=== PATIENT | female | born 1940 | race Caucasian/White ===

== ENCOUNTER 2021-02-26 06:31 | Observation (INO) | payer OTHER ==
[~2021-02-26] VITALS: Ht 154.9 cm; Wt 95.6 kg
[~2021-02-26 06:31] MED LIST: AMARYL2 M1 PO; ASA81BEC PO; BRILINTA90 MG PO; COUMADIN 4 MG TA4 M1 PO; DILTIAZEM HCL30 MG PO; ELIQUIS5 MG PO; FLECAINIDE ACET50 M2 PO; FUROSEMIDE 40 M40 M1 PO; FUROSEMIDE 40 M40 MG PO; HYDROCODON-ACE1 EAC7 PO; HYZAAR 50-12.51 EACH PO; JANTOVEN5 MG PO; KLOR-CON M2020 MEQ PO; LANOXIN125 MCG PO; LANTUS100 UNIT/M SUBQ; LEVEMIR100 UNIT/1 SUBQ; LIPITOR40 MG PO; LOSARTAN-HCTZ1 EAC3 PO; METOPROLOL TART25 MG PO; NOVOLIN N100 UNIT/3 SUBQ; NOVOLIN R100 UNIT/1 SUBQ; OMEPRAZOLE 20 M20 M1 PO; PACERONE 200 M200 M1 PO; PLAVIX 75 MG TA75 MG PO; PRAVACHOL20 MG PO; SOTALOL160 MG PO; SOTALOL80 MG PO; TEMAZEPAM30 MG PO; TYLOPHEN500 MG PO; XARELTO10 MG PO
[2021-02-26 07:36] VITALS: BP 126/74
[2021-02-26 08:00] LABS: ABSOLUTE NEUTROPHILS 3.2 thou/uL (1.4-8.2); BASOPHILS 1.4 % (0.0-2.0); EOSINOPHILS 2.5 % (0.0-3.0); HEMOGLOBIN 12.5 gm/dL (12.0-15.0); LYMPHOCYTES 26.7 % (24.0-44.0); MCH 28.6 pg (26.0-34.0); MCHC 32.1 g/dL (28.0-37.0); MCV 89.1 fL (80.0-100.0); PLATELET COUNT 302 thou/uL (150-400); POLYS 58.4 % (36.0-66.0); RBC 4.38 mil/uL (4.20-5.00); RDW 16.2 % (10.5-14.5); WBC 5.4 thou/uL (4.0-11.0)
[2021-02-26 08:10] LABS: CALCIUM 9.3 mg/dL (8.5-10.1); CREATININE 1.5 mg/dL (0.6-1.0); POTASSIUM 3.5 mmol/L (3.5-5.1)
[2021-02-26 08:12] LABS: APTT 28.6 Seconds (24.5-32.8); INR 1.1; PROTIME 11.9 Seconds (10.5-12.1)
[2021-02-26 08:16] LABS: ALBUMIN 3.4 g/dL (3.4-5.0); TOTAL BILIRUBIN 0.5 mg/dL (0.2-1.0)
--- NOTE | 2021-02-26 11:07 | TEE ---
[facility] [place] [address] TRANSESOPHAGEAL ECHOCARDIOGRAM Name: SAMMY LONGO Room #: REG KADEN Preciado#: [id number] Admission: 02/26/21 Attend Phys: Javi Hinojosa MD Discharge: Date of : 42 Report #: [id number] THIS REPORT FOR: cc: Arnulfo Esparza MD,Lucho Goode MD, MD [facility] ~ APPROVED REPORT Study performed: 02/26/2021 08:45:19 EXAM: Comprehensive 2D, Doppler, and color-flow Echocardiogram Patient Location: Out-Patient Room #: 1 Status: routine BSA: 1.92 HR: 88 bpm Rhythm: Atrial Fibrillation Other Information Study Quality: Good Indications Atrial Fibrillation Echo Enhancing Agent Indication: Rule out Shunt Agent(s) / Amount(s) Used: Agitated Saline 7 cc Procedure After obtaining informed consent, patient underwent transesophageal echo in the EP Lab. Type of Sedation : General Anesthesia Sedation was administered by Anesthesiologist. Transesophageal probe was inserted and advanced into esophagus without difficulty by Lucho Scherer MD. Echo enhancement indication: R/O Septal defect. Echo enhancement agent administered: Agitated Saline The BECK was performed without complications. Throughout the procedure, the blood pressure, pulse oximetry, cardiac rhythm, and rate were monitored. The patient tolerated the procedure without adverse effects. Recovery from conscious sedation was uneventful and vital signs were [facility] [address] [place] [address] TRANSESOPHAGEAL ECHOCARDIOGRAM Name: SAMMY LONGO Room #: REG [facility]#: [id number] Admission: 02/26/21 Attend Phys: Javi Bauerchonnjohn Discharge: Date of : 42 Report #: [id number] stable. Left Ventricle The left ventricle is normal size. There is normal left ventricular wall thickness. Left ventricular systolic function is borderline. LVEF is 50%. Right Ventricle Right ventricle is at the upper limits of normal. The right ventricular systolic function is normal. Atria Left atrium is dilated. Injection of contrast documented no interatrial shunt. Right atrium is dilated. Aortic Valve The aortic valve is normal in structure. No aortic regurgitation is present. There is no aortic valvular stenosis. Mitral Valve The mitral valve is normal in structure. There is no mitral valve regurgitation noted. No evidence of mitral valve stenosis. Tricuspid Valve The tricuspid valve is normal in structure. There is no tricuspid valve regurgitation noted. Pulmonic Valve The pulmonary valve is normal in structure. There is no pulmonic valvular regurgitation. Great Vessels The aortic root is normal in size. Pericardium There is no pericardial effusion. <Conclusion> BECK preablation Consent was obtained Anesthesia performed by the anesthesiologist Esophageal probe was advanced without difficulty Left atrial appendage moderate size, no mass or clot detected Mild biatrial enlargement Normal left ventricle size/wall thickness ejection fraction 50-55% [facility] [place] [address] TRANSESOPHAGEAL ECHOCARDIOGRAM Name: SAMMY LONGO [facility] [id number] Admission: 02/26/21 Attend Phys: Javi Luna Couchonnal Discharge: Date of : 42 Report #: [id number] Normal right ventricle size/function Normal aortic/mitral valve structure and function No tricuspid valve insufficiency No evidence of ASD/VSD by color flow/bubble study Normal aortic root size No pericardial effusion Aorta minimal calcification detected <ELECTRONICALLY SIGNED> By: Lucho Scherer MD, FACC 02/26/211106 06 06 Lucho Scherer MD, FACC /INF
[2021-02-26 13:25] VITALS: BP 149/62
[2021-02-26 13:50] VITALS: BP 149/62
[2021-02-26 14:13] VITALS: BP 120/92
[2021-02-26 15:17] VITALS: BP 129/68
--- NOTE | 2021-02-26 15:25 | NUR ---
UPON ARRIVAL TO THE CCU POST-ABLATION, THE PATIENT INDICATED THAT SHE DID NOT WANT CHEST COMPRESSIONS IF HER HEART WERE TO STOP AND THAT SHE DID NOT WANT TO BE INTUBATED IF SHE WERE TO STOP BREATHING. PREVIOUSLY DR. LANG ENTERED A FULL CODE ORDER. DR. LANG WAS CALLED AND THE SUPERIOR COURT CLERK SAID SHE WOULD SPEAK WITH DR. LANG ABOUT POSSIBLY CHANGING THE ORDER.
[2021-02-26] MEDS ORDERED: PACERONE 200 M200 M1 PO ×2 (16:25→16:26)
--- NOTE | 2021-02-26 17:24 | NUR ---
REMOVED STOPCOCK FROM R GROIN SITE AT 1718 AND HELD PRESSURE FOR 5 MINUTES. NO SIGNS OF BLEEDING NOTED. SITE IS C/D/I AND SOFT TO PALPATION.
[2021-02-27 04:35] VITALS: BP 122/39
--- NOTE | 2021-02-27 04:46 | NUR ---
PT BEEN RESTING IN NO ACUTE DISTRESS.A/OX4.S/P AFIB ABLATION.RIGHT GROIN W/O HEMATOMA OR ACTIVE BLEEDING.PERIPHERAL PULSES 2+.PT UP TO BR W/STEADY GAIT.SR W/1DEG AVB.DENIES CHEST PAIN.ASSESSMENT COMPLETED DOCUMENTED.PT TO DISCHARGE TO HOME TODAY.NO CONCERNS VOICED AT THIS TIME.
[2021-02-27 07:00] VITALS: BP 120/50
[2021-02-27 12:00] VITALS: BP 108/40
[2021-02-27 13:19] VITALS: BP 108/40
--- NOTE | 2021-02-27 14:31 | NUR ---
PATIENT S/P ABLATION. PATIENT STATES THAT SHE FEELS BETTER THAN SHE DID ON ADMISSION. RIGHT GROIN SITE WITH BANDAGE IN PLACE, C/D/I. BANDAGE REMOVED PRIOR TO D/C BY CARDS. PRECAUTIONS OF GROIN SITE REMINDED TO PATIENT. ACCU CHECK COMPLETED, INSULIN GIVEN DIRECTED. SR TODAY, HR 70'S. AMBULATING WITHOUT ANY DIFFICULTY. DENIES ANY CP OR SOA. IV AND TELE REMOVED. PATIENT TAKEN OUT VIA WHEELCHAIR TO THE MAIN ENTRANCE TO BE DRIVEN HOME BY HER SON.
--- NOTE | 2021-03-14 12:29 | P ---
[facility] [place] [address] [place] [address] PROCEDURE REPORT Name: SAMMY LONGO Room #: 200-I [facility] Baldemar Sanford#: [id number] Admission: 02/26/21 Attend Phys: Javi Hinojosa MD Discharge: 02/27/21 Date of : 42 Report #: [id number] THIS REPORT FOR: cc: Arnulfo Esparza MD, Ram MD Couchonnal,Javi Luna MD ~ DATE OF SERVICE: 02/26/2021 PREOPERATIVE DIAGNOSIS: Atrial fibrillation and atrial flutter. PROCEDURES PERFORMED: 1. Atrial fibrillation ablation, CPT code 79407. 2. 3D mapping, CPT code 27784. 3. Intracardiac echo, CPT code 03667. 4. Focal ablation, CPT code 88329. 5. Second pathway ablation, CPT code 97421. DESCRIPTION OF PROCEDURE: The patient underwent informed consent. She was brought to the EP laboratory in fasting and sedated state and prepped and draped in a standard fashion. I obtained access to the right femoral vein x 3, placing an 8, 9 and 7-Nauruan short sheath using the modified Seldinger technique. At baseline, the patient was noted to be in atrial fibrillation. Next, using fluoroscopy, I placed an ICE catheter in the right atrium, a Decapolar catheter in the coronary sinus. The patient was systemically heparinized and a transseptal was performed using an SL1 sheath and a [place] needle, which was straightforward. I then exchanged for the cryosheath and placed the Lasso catheter into the left atrium. The left superior pulmonary vein underwent two 4-minute freezes and appeared to be isolated. Left inferior pulmonary vein underwent 4-minute freeze which isolated the vein at 145 seconds and then additional 3-minute freeze. The right superior pulmonary vein underwent an initial 125-second freeze and isolated at 40 seconds and I came off due to cold temperatures. I gave an additional 3-minute freeze. The right inferior pulmonary vein underwent a 140-second freeze isolating at 50 seconds and again I came off due to cold temps. I then gave an additional 3-minute freeze. There was never any phrenic nerve compromise. Of note, when I placed the cryoballoon into the right inferior pulmonary vein, the patient's atrial fibrillation converted to sinus rhythm. Posterior wall isolation: Next, I decided to perform posterior wall isolation using cryoablation balloon. I performed a total of 4 freezes each of 3 minutes duration. Esophageal temperatures were found to be within normal limits during these freezes. Post-ablation, a repeat voltage map was created showing that all veins were isolated as well as the posterior wall. The patient was then prepped for atrial flutter ablation. Ablation was performed using an 8 mm ablation catheter via a ramp sheath. Preablation, the [facility] [address] [place] [address] PROCEDURE REPORT Name: SAMMY LONGO Room #: 200-I [facility] Baldemar Sanford#: [id number] Admission: 02/26/21 Attend Phys: Javi Hinojosa MD Discharge: 02/27/21 Date of : 42 Report #: [id number] transisthmus conduction time was 90 milliseconds, post-ablation it was 200 milliseconds with activation sequence consistent with bidirectional block. Post-ablation, the patient was in sinus rhythm and there was no evidence of pericardial effusion. As such, the procedure was concluded and there were no procedure related complications. CONCLUSION: 1. Successful atrial fibrillation ablation with isolation of both pulmonary veins. 2. Successful posterior wall isolation. 3. Successful atrial flutter ablation with bidirectional block. <ELECTRONICALLY SIGNED> By: Javi Hinojosa MD 03/14/21 1229 0724 0815 Javi Hinojosa MD /nt
== END 2021-02-27 14:13 | disposition home or self-care (01) ==
LOC: CATH 06:31 → 2N 13:37 → CATH 13:38 → 2N 13:38 → CATH 14:01 → 2N 02-27 14:13
PROVIDERS: ADMIT Internal Medicine Cardiovascular Disease; ATTEND Internal Medicine Cardiovascular Disease
DX: I48.91 Unspecified atrial fibrillation (principal); I48.92 Unspecified atrial flutter; I25.10 Atherosclerotic heart disease of native coronary artery without angina pectoris; Z20.822 Contact with and (suspected) exposure to COVID-19; I12.9 Hypertensive chronic kidney disease with stage 1 through stage 4 chronic kidney disease, or unspecified chronic kidney disease; E11.22 Type 2 diabetes mellitus with diabetic chronic kidney disease; N18.9 Chronic kidney disease, unspecified; G47.33 Obstructive sleep apnea (adult) (pediatric); E78.5 Hyperlipidemia, unspecified; Z79.01 Long term (current) use of anticoagulants; Z79.82 Long term (current) use of aspirin; Z79.899 Other long term (current) drug therapy
CPT/HCPCS: 10797; 62110; 62900; 65020; 65040; 70005